=== PATIENT | female | born 1990 | race Two or more races ===

== ENCOUNTER 2024-09-05 13:29 | Outpatient (REF) | payer MEDICAID, SELFPAY ==
[2024-09-05 17:26] LABS: Hemoglobin A1C 6.4 % (<5.7)
[2024-09-05 17:45] LABS: ALT 112 U/L (14-59); AST 77 U/L (15-37); Albumin 3.7 g/dL (3.4-5.0); Alkaline Phosphatase 88 U/L (46-116); Anion Gap 7.7 mmol/L (3-11); BUN 9 mg/dL (7-18); Bilirubin, Total 0.4 mg/dL (0.2-1.0); CO2 27.3 mmol/L (21.0-32.0); CREATININE 0.6 mg/dL (0.55-1.02); Calcium 9.4 mg/dL (8.5-10.1); Calculated LDL 163 mg/dL (<100); Chloride 103 mmol/L (98-107); Cholesterol 261 mg/dL (<200); Estimated GFR 121.47 (mL/min/1.73m2); Glucose 127 mg/dL (74-106); HDL Cholesterol 34 mg/dL (>or=50); Potassium 4.5 mmol/L (3.5-5.1); Sodium 138 mmol/L (136-145); TSH (W/Ref FT4) 1.62 uIU/mL (0.36-3.74); Total Protein 8.2 g/dL (6.4-8.2); Triglyceride 324 mg/dL (<150); Vitamin D 25 Total 12 ng/mL (30-100)
== END 2024-09-05 13:30 | disposition home or self-care (01) ==
LOC: NCHCN 13:29
PROVIDERS: Visit Provider Nurse Practitioner Family
DX: Z00.01 Encounter for general adult medical examination with abnormal findings (principal)
CPT/HCPCS: 80053; 80061; 82306; 83036; 84443

== ENCOUNTER 2024-12-26 07:42 | Outpatient (CLI) | payer MEDICAID, SELFPAY ==
--- NOTE | 2024-12-26 | DI.US_ITS ---
Exam(s) US ABDOMEN LIMITED EXAM: US ABDOMEN LIMITED CLINICAL HISTORY: ELEVATED LIVER TRANSAMINASE LEVELS R74.01 TECHNIQUE: Ultrasound abdomen performed using standard protocol. COMPARISON: No exams were available for comparison FINDINGS: There is no ascites evident. LIVER: Liver is hyperechoic indicating steatosis. There no discrete focal hepatic lesions evident. GALLBLADDER/BILIARY: There are no gallstones. No gallbladder wall edema nor pericholecystic fluid. The common hepatic duct isnot dilated, measuring 4-6mm at the level of richie hepatis. PANCREAS: There is no evidence of pancreatic mass nor dilatation of the pancreatic duct. RIGHT KIDNEY:No evidence of solid mass, calculus, nor hydronephrosis. No cortical cysts evident. IMPRESSION: 1. No evidence of cholelithiasis nor dilatation of the biliary tree. 2. Hepatic steatosis. No discrete focal hepatic lesions. 3. No other right upper quadrant ultrasound findings and there is no ascites. DATA REPOSITORY:
== END 2024-12-26 08:02 ==
PROVIDERS: PCP Nurse Practitioner Family; Visit Provider Nurse Practitioner Family
DX: R74.01 Elevation of levels of liver transaminase levels (principal); K76.0 Fatty (change of) liver, not elsewhere classified
CPT/HCPCS: 76705

== ENCOUNTER 2025-02-27 12:32 | Outpatient (REF) | payer MEDICAID, SELFPAY ==
[2025-03-01 12:04] LABS: Chlamydia Result Negative (Negative); GC Result Negative (Negative)
== END 2025-02-27 12:33 | disposition home or self-care (01) ==
LOC: LBN 12:32
PROVIDERS: PCP Nurse Practitioner Family; Visit Provider Obstetrics & Gynecology
DX: Z12.4 Encounter for screening for malignant neoplasm of cervix (principal)
CPT/HCPCS: 87491; 87591; 88142; 87624

== ENCOUNTER 2025-02-27 13:44 | Outpatient (CLI) | payer MEDICAID, SELFPAY ==
[2025-02-27 13:18] LABS: Abs Immature Grans 0.03 10^3/uL (0.0-0.06); HCT 40.6 % (36.0-46.0); HGB 13.0 g/dL (11.2-15.7); Immature Grans % 0.4 %; MCH 27.3 pg (27.0-33.0); MCHC 32.0 % (32.0-36.0); MCV 85 fL (80-95); MPV 9.5 fL (8.0-11.0); Platelet Count 255 10^3/uL (130-400); RBC 4.77 10^6/uL (3.93-5.22); RDW 13.3 % (11.7-14.6); RDW-SD 41.3 fL; WBC 8.28 10^3/uL (4.4-10.8)
[2025-02-27 13:36] LABS: Hemoglobin A1C 6.3 % (<5.7)
[2025-02-27 14:13] LABS: Iron 85 ug/dL (50-170); Total Iron Binding Capacity 316 ug/dL (250-450); Transferrin Sat 27 % (15-50)
[2025-02-27 14:44] LABS: ALT 103 U/L (14-59); AST 56 U/L (15-37); Albumin 3.7 g/dL (3.4-5.0); Alkaline Phosphatase 87 U/L (46-116); Anion Gap 8.1 mmol/L (3-11); BUN 8 mg/dL (7-18); Bilirubin, Total 0.6 mg/dL (0.2-1.0); CO2 28.9 mmol/L (21.0-32.0); Calcium 9.0 mg/dL (8.5-10.1); Chloride 101 mmol/L (98-107); Ferritin 128 ng/mL (8-252); Glucose 110 mg/dL (74-106); Potassium 4.0 mmol/L (3.5-5.1); Sodium 138 mmol/L (136-145); Total Protein 8.4 g/dL (6.4-8.2); Vitamin D 25 Total 16 ng/mL (30-100)
[2025-02-28 00:10] LABS: HBs Antibody, Quant 6.4 mIU/mL (See Note); Hepatitis B Surface Ab Negative (See Note)
[2025-02-28 00:50] LABS: Hepatitis C Ab w Rflx HCV PCR Negative (Negative)
[2025-02-28 00:57] LABS: HIV-1/2 Ag & Ab Screen Negative (Negative)
[2025-02-28 01:00] LABS: Hep B Core Antibody Negative (Negative)
[2025-02-28 01:43] LABS: Hep A Total Ab w Rflx IgM Positive (Negative)
[2025-02-28 10:16] LABS: Syphilis Serology (RPR) Negative (Negative)
== END 2025-02-27 13:45 | disposition home or self-care (01) ==
LOC: LBO 13:45
PROVIDERS: Obstetrics & Gynecology; PCP Nurse Practitioner Family; Visit Provider Nurse Practitioner Family
DX: Z20.2 Contact with and (suspected) exposure to infections with a predominantly sexual mode of transmission (principal); R74.01 Elevation of levels of liver transaminase levels; E55.9 Vitamin D deficiency, unspecified; K76.0 Fatty (change of) liver, not elsewhere classified
CPT/HCPCS: 36415; 80053; 82306; 86704; 86706; 86709; 86803; 87340; 87389; 82728; 83036; 83540; 83550; 85025; 86592